=== PATIENT | female | born 1995 | race Caucasian/White ===

== ENCOUNTER 2023-09-27 13:23 | Emergency (ER) | payer OTHER ==
[2023-09-27 13:41] VITALS: O2SAT 100
--- NOTE | 2023-09-27 14:06 | ED Physician Documentation ---
PD HPI SKIN - Stated complaint Stated Complaint: BAT BITES/RABIES VAC - Chief complaint Chief Complaint: General - History obtained from History obtained from: Patient - History of Present Illness Timing - onset: How many days ago (4) Timing - duration: Days (she believes she was bit by a bat. Awoke from sleep and there was a bat flying in her room, and after it shooed from the room to outdoors, she noted a small pinpoint area of tenderness at forearm and a spot of redness. No open bleeding per se. Had had similar 4 days prior to left wrist.) Timing - details: Abrupt onset Location: RUE (the most recent was at right volar forearm. She took picture of her skin at the time and it shows a spot of red under the skin.) PD PAST MEDICAL HISTORY - Past Medical History Past Medical History: No Cardiovascular: None Respiratory: None Neuro: None Endocrine/Autoimmune: None GI: None [employer]: None : None HEENT: None Psych: None Musculoskeletal: None Derm: None - Past Surgical History Past Surgical History: Yes - Allergies Allergies/Adverse Reactions: Allergies Allergy/AdvReac Type Severity Reaction Status Date / Time No Known Drug Allergies Allergy Verified 09/27/23 13:38 - Social History Does the pt smoke?: No Smoking Status: Never smoker - Immunizations Immunizations are current?: Yes PD ED PE NORMAL - Vitals Vital signs reviewed: Yes - General General: Alert and oriented X 3, No acute distress, Well developed/nourished - Derm Derm: Normal color, Warm and dry - Extremities Extremities: Other (wrist and forearm in areas she states had the wounds appear normal at this point without redness/swelling. I would expect to appear normal though, so segue from the history re: giving the rabies shots. ) - Neuro Neuro: Alert and oriented X 3, No motor deficit, No sensory deficit, Normal speech Results - Vitals Vitals: Vital Signs - 24 hr 09/27/23 09/27/23 13:31 15:43 Temperature 36.3 C L 36.4 C L Heart Rate 60 78 Respiratory 16 16 Rate Blood Pressure 107/60 111/74 O2 Saturation 100 100 Oxygen O2 Source Room air PD Medical Decision Making - ED course Complexity details: considered differential (reasonable circummstances for a bat bite superficially to forearm and wrist. Can give the RIG and vaccine. ), d/w patient Departure - Departure Disposition: 01 Home, Self Care Clinical Impression: Bat bite wound Condition: Stable Record reviewed to determine appropriate education?: Yes Instructions: Rabies Forms: PCP List, Rabies Vaccine Series (MAC) Discharge Date/Time: 09/27/23 15:44
[2023-09-27] MEDS: RABIES VACCINE 2.5 UNIT SYRINGE IM ONE (15:08)
[2023-09-27] MEDS: RABIES IMMUNE GLOBULIN 300 UNITS/2 ML IM STA (15:11)
[2023-09-27 15:44] VITALS: BP 111/74
== END 2023-09-27 15:44 | disposition home or self-care (01) ==
LOC: ED 13:23
DX: S50.871A Other superficial bite of right forearm, initial encounter (principal); W64.XXXA Exposure to other animate mechanical forces, initial encounter; Y93.84 Activity, sleeping; Y92.003 Bedroom of unspecified non-institutional (private) residence as the place of occurrence of the external cause
CPT/HCPCS: 90471; 96372; 99283